=== PATIENT | female | born 1935 | race Caucasian/White ===

== ENCOUNTER 2017-07-13 12:30 | Outpatient (CLI) | payer MEDICARE, BC ==
[~2017-07-13 12:30] MED LIST: Sodium Chloride 0.9% 15 ML NEB ONE
--- OUTSIDE RECORDS SUMMARY | 2017-07-13 12:32 | XMS | Clinical Summary ---
:1935 Author Organization [facility] Address [address] [place] [address] Phone Care Team Providers Name Role Phone , Primary Care Provider Unavailable Allergies No Known Allergies Current Medications Prescription Sig. Disp. Refills Start Date End Date Status ondansetron (ZOFRAN) 4 Inject 2 mLs (4 mg 20 mL 0 10/07/2016 Active mg/2 mL injection total) intravenously every 8 (eight) hours as needed. metoprolol (LOPRESSOR) 50 mg by PEG Tube Active 50 MG tablet route every 6 (six) hours. acetaminophen 650 Take 650 mg by mouth Active mg/20.3 mL Soln every 6 (six) hours as needed. polyethylene glycol 17 g by PEG Tube Active (GLYCOLAX) 17 gram route 2 (two) times packet daily. potassium, sodium 1 packet by PEG Tube Active phosphates (PHOS-NAK) route 2 (two) times 280-160-250 mg PwPk daily. packet simethicone (MYLICON) 80 mg by PEG Tube Active 80 MG chewable tablet route every 6 (six) hours as needed for Flatulence. isosorbide dinitrate 20 mg by PEG Tube Active (ISORDIL) 20 MG tablet route 3 (three) times daily. losartan (COZAAR) 50 MG 50 mg by PEG Tube Active tablet route daily. furosemide 10 mg/mL Take 40 mg by mouth 2 Active Syrg (two) times daily . diphenoxylate-atropine Take by mouth 4 Active (LOMOTIL) 2.5-0.025 (four) times daily as mg/5 mL liquid needed. diphenhydrAMINE Take 25 mg by mouth Active (BENYLIN) 12.5 mg/5 mL every night as needed liquid for Allergies. diphenhydrAMINE Take 25 mg by mouth 4 Active (BENYLIN) 12.5 mg/5 mL (four) times daily as liquid needed for Allergies. cloNIDine HCl 0.1 mg by PEG Tube Active (CATAPRES) 0.1 MG route every 6 (six) tablet hours as needed BP>189/94 or HR >72 . LIP PROTECTIVE, Apply topically 4 Active BENZOPHENONE, TOP (four) times daily as needed. artificial Place 1 drop into Active tears,hypromellose, 0.4 both eyes 4 (four) % Drop times daily as needed. acetaZOLAMIDE (DIAMOX) 250 mg by PEG Tube Active 250 MG tablet route 2 (two) times daily. traMADol (ULTRAM) 50 mg 50 mg by PEG Tube Active tablet route every 6 (six) hours as needed for Pain. apixaban (ELIQUIS) 2.5 2.5 mg by PEG Tube 10/07/2016 Active mg Tab tablet route 2 (two) times daily. clopidogrel (PLAVIX) 75 Take 75 mg by mouth Active mg tablet daily. cefTRIAXone 1 gram SolR Inject intravenously. Active injection albuterol-ipratropium Inhale 2 puffs by Active (COMBIVENT) 18-103 mouth via inhaler mcg/actuation inhaler every 6 (six) hours as needed for Wheezing. polyvinyl alcohol 1 drop as needed. 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 Thrombocytopenia, acquired 09/27/2016 Acute pulmonary insufficiency following thoracic surgery ([facility]) 09/15/2016 Postoperative anemia due to acute blood loss 09/15/2016 Aortic dissection ([facility]) 09/14/2016 Social History Tobacco Use Types Packs/Day Years Used Date Never Smoker Cigarettes Tobacco Cessation:Ready to Quit: No; Counseling Given: No Alcohol Use Drinks/Week oz/Week Comments Yes 1 Glasses of wine 0.6 WINE Sex Assigned at Date Recorded Not on file Last Filed Vital Signs Vital Sign Reading Time Taken Blood Pressure 134/81 10/27/2016 2:43 PM GETTERER Pulse 99 10/27/2016 2:43 PM GETTERER Temperature 37.3 C (99.2 F) 10/27/2016 8:57 AM GETTERER Respiratory Rate 18 10/27/2016 2:43 PM GETTERER Oxygen Saturation 99% 10/27/2016 2:43 PM GETTERER Inhaled Oxygen Concentration - - Weight 76.7 kg (169 lb) 10/26/2016 8:10 AM GETTERER Height 170.2 cm (5' 7.01") 10/26/2016 8:10 AM GETTERER Body Mass Index 26.46 10/26/2016 8:10 AM GETTERER Plan of Treatment Not on file Implants Implanted Type Area Cellophane Wrapping Examiner Device Expiration Model / Serial Identifier Date / Lot Tiss Live Bioglue 10ml [id number] - [id number] Cement/F N/A: CRYOLIFE [id number] / Implanted:Qty: 1 on 09/14/2016 by Kian Padilla MD iller/Ad Chest / hesive [id number] Tachosil Lg Absorbable Patch [id number] - [id number] Cement/F N/A: BRIGGS: BIOSCI 02/13/2017 [id number] / Implanted:Qty: 1 on 09/14/2016 by Kian Padilla MD iller/Ad Heart / hesive [id number] Tachosil Absrb Ptch 4.8x4.8cm [id number] - [id number] Cement/F N/A: BRIGGS: BIOSCI 02/13/2017 [id number] / Implanted:Qty: 1 on 09/14/2016 by Kian Padlila MD iller/Ad Heart / hesive [id number] Matrix Floseal Hemo W/O Ndl 10 [id number] - [id number] Cement/F N/A: BRIGGS: BIOSCI 01/14/2018 [id number] / Implanted:Qty: 1 on 09/14/2016 by Willow Coronado MD iller/Ad Chest / hesive [id number] Graft Vasutek Woven 30cm [id number] - [id number] Graft/Pa N/A: TERUMO:TERUMO 03/16/2021 [id number] / Implanted:Qty: 1 on 09/14/2016 by Kian Padilla MD [facility] Heart MED [id number] / [id number] Grft Vasc Precrv 28mm [id number] - [id number] Graft/Pa N/A: VASCULAR 2019 [id number] / Implanted:Qty: 1 on 09/14/2016 by Kian Padilla MD [facility] Aorta TECHNOLOGY [id number] / [id number] Patch Vasc [place] 1.65mm 1x6in [id number] - [id number] Graft/Pa N/A: CR 2020 [id number] / Implanted:Qty: 2 on 09/14/2016 by Kian Padilla MD [facility] Heart BARD:PERIPHERAL / VASC [id number] Results Not on filefrom Last 3 Months
--- NOTE | 2017-07-13 14:14 | PRG ---
DATE OF SERVICE: 07/13/2017 HISTORY: Ms. Belinda Wilson is a very pleasant 82-year-old who presents to the Wound Center for evaluation of a wound of the left foot subsequent to transmetatarsal amputation in November of this year. The patient recently underwent a second surgery by Dr. Jensen of Podiatry. Again, the patient underwent resection of exposed bone within the wound bed of the left foot wound in addition to the a pplication of PriMatrix to the wound bed of the left foot wound. The patient underwent the last mary carmen gical procedure at [facility]. Negative pressure therapy was not resumed afte r surgery. The patient continues to receive physical therapy now with the weightbearing on the left lower extremity. The patient has been receiving dressing changes of Adaptic, Kerlix, and an Dre ba ndage. These dressing changes are being performed on a weekly basis here in the Wound Center, and a s needed by the patient's . Ms. Wilson has no complaints today. She denies any fever or ch ills. PHYSICAL EXAMINATION: VITAL SIGNS: Temperature 97.8, pulse 75, respirations 18, blood pressure 182/89. EXTREMITIES: A wound of the left foot is present which measures approximately 4.5 x 8.8 cm. The di mensions of the wound at the time of the patient's visit on 07/06/2017 were approximately 5.1 x 6.8 cm. The wound is granulating. No purulent drainage is associated with the wound. No erythema of t he skin surrounding the wound is present. No maceration of the skin of the periwound is noted. No significant edema of the left foot is present on exam today. ASSESSMENT AND PLAN: 1. Wound of left foot subsequent to transmetatarsal amputation. As stated above, the patient has u ndergone resection of exposed bone within the wound bed of the left foot wound and PriMatrix applica tion both on two separate occasions by Dr. Jensen of Podiatry. As stated above, negative pressure the rapy was not resumed after surgery. Dressing changes of Adaptic, Kerlix, and an Dre bandage will be continued on a weekly basis and also as needed. I will see Ms. Wilson again in 1 week. The patie nt will continue physical therapy now with weightbearing on the left lower extremity per Dr. Jensen. 2. Thoracic aortic dissection status post repair at [facility] in [place]. 3. Hypertension. 4. Osteoarthritis. 5. Peripheral vascular disease.
== END 2017-07-13 12:31 | disposition home or self-care (01) ==
LOC: WCC 12:30
PROVIDERS: ATTEND Family Medicine
DX: T81.89XD Other complications of procedures, not elsewhere classified, subsequent encounter (principal)
CPT/HCPCS: 97602; A4218

== ENCOUNTER 2017-07-20 13:07 | Outpatient (CLI) | payer MEDICARE, BC ==
--- OUTSIDE RECORDS SUMMARY | 2017-07-20 13:11 | XMS | Clinical Summary ---
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 Thrombocytopenia, acquired ([facility]) 09/27/2016 Acute pulmonary insufficiency following thoracic surgery ([facility]) 09/15/2016 Postoperative anemia due to acute blood loss 09/15/2016 Aortic dissection ([facility]) 09/14/2016 Social History Tobacco Use Types Packs/Day Years Used Date Never Smoker Cigarettes Tobacco Cessation:Ready to Quit: No; Counseling Given: No Alcohol Use Drinks/Week oz/Week Comments Yes 1 Glasses of wine 0.6 WINE Sex Assigned at Date Recorded Not on file Last Filed Vital Signs Vital Sign Reading Time Taken Blood Pressure 134/81 10/27/2016 2:43 PM HAND EDGER Pulse 99 10/27/2016 2:43 PM HAND EDGER Temperature 37.3 C (99.2 F) 10/27/2016 8:57 AM HAND EDGER Respiratory Rate 18 10/27/2016 2:43 PM HAND EDGER Oxygen Saturation 99% 10/27/2016 2:43 PM HAND EDGER Inhaled Oxygen Concentration - - Weight 76.7 kg (169 lb) 10/26/2016 8:10 AM HAND EDGER Height 170.2 cm (5' 7.01") 10/26/2016 8:10 AM HAND EDGER Body Mass Index 26.46 10/26/2016 8:10 AM HAND EDGER Plan of Treatment Not on file Implants Implanted Type Area Splitting Machine Operator Device Expiration Model / Serial Identifier Date / Lot Tiss Live Bioglue 10ml [id number] - [id number] Cement/F N/A: CRYOLIFE [id number] / Implanted:Qty: 1 on 09/14/2016 by Kian Padilla MD iller/Ad Chest / hesive [id number] Tachosil Lg Absorbable Patch [id number] - [id number] Cement/F N/A: BRIGGS: BIOSCI 02/13/2017 [id number] / Implanted:Qty: 1 on 09/14/2016 by Kian Padilla MD iller/Ad Heart / hesive [id number] Tachosil Absrb Ptch 4.8x4.8cm [id number] - [id number] Cement/F N/A: BRIGGS: BIOSCI 02/13/2017 [id number] / Implanted:Qty: 1 on 09/14/2016 by Kian Padilla MD iller/Ad Heart / hesive [id number] Matrix Floseal Hemo W/O Ndl 10 [id number] - [id number] Cement/F N/A: BRIGGS: BIOSCI 01/14/2018 [id number] / Implanted:Qty: 1 on 09/14/2016 by Willow Coronado MD iller/Ad Chest / hesive [id number] Graft Vasutek Woven 30cm [id number] - [id number] Graft/Pa N/A: TERUMO:TERUMO 03/16/2021 [id number] / Implanted:Qty: 1 on 09/14/2016 by Kian Padilla MD [facility] Heart MED [id number] / [id number] Grft Vasc Precrv 28mm [id number] - [id number] Graft/Pa N/A: VASCULAR 2019 [id number] / Implanted:Qty: 1 on 09/14/2016 by Kian Padilla MD [facility] Aorta TECHNOLOGY [id number] / [id number] Patch Vasc [place] 1.65mm 1x6in [id number] - [id number] Graft/Pa N/A: CR 2020 [id number] / Implanted:Qty: 2 on 09/14/2016 by Kian Padilla MD [facility] Heart BARD:PERIPHERAL / VASC [id number] Results Not on filefrom Last 3 Months
--- NOTE | 2017-07-20 14:54 | PRG ---
DATE OF SERVICE: 07/20/2017 HISTORY: Ms. Trevino is a very pleasant 82-year-old, who presents to the Wound Center for evaluation of a wound of the left foot subsequent to transmetatarsal amputation in November of this year. The patient recently underwent a second surgery by Dr. Amaro of Podiatry. Again, the patient underwent resection of exposed bone within the wound bed of the left foot wound in addition to the application of PriMatrix to the wound bed of the left foot wound. The patient underwent the last surgical proc edure at [facility]. Negative pressure therapy was not resumed after surgery. The patient continues to receive physical therapy now with weightbearing on the left lower extremi ty. The patient has been receiving dressing changes of Adaptic, Kerlix, and an Dre bandage. These dressing changes are being performed on a weekly basis here in the Wound Center and as needed by the patient's . The patient has no complaints today. She denies any fever or chills. PHYSICAL EXAMINATION: VITAL SIGNS: Temperature 97.8, pulse 73, respirations 20, blood pressure 140/66. EXTREMITIES: A wound of the left foot is present, which measures approximately 4.0 x 7.0 cm. The d imensions of the wound at the time of the patient's visit on 07/13/2017 were approximately 4.5 x 8.8 cm. The wound is granulating. No purulent drainage is associated with the wound. No erythema of the skin surrounding the wound is present. No maceration of the skin of the periwound is noted. No significant edema of the left foot is present on exam today. ASSESSMENT AND PLAN: 1. Wound of left foot subsequent to transmetatarsal amputation. As stated above, the patient has u ndergone resection of exposed bone within the wound bed of the left foot wound and PriMatrix applica tion both on two separate occasions by Dr. Amaro of Podiatry. As stated above, negative pressure the rapy was not resumed after surgery. Dressing changes of Adaptic, Kerlix, and an Dre bandage will be continued on a weekly basis and also as needed. I will see Ms. Wilson again in 1 week. The patie nt will continue physical therapy now with weightbearing on the left lower extremity as per Dr. Amaro . 2. Thoracic aortic dissection, status post repair at [facility] in [place]. 3. Hypertension. 4. Osteoarthritis. 5. Peripheral vascular disease.
[2017-07-20] MEDS ORDERED: Sodium Chloride 0.9% 15 ML NEB ONE (16:24)
== END 2017-07-20 13:08 | disposition home or self-care (01) ==
LOC: WCC 13:07
PROVIDERS: ATTEND Family Medicine
DX: T81.89XD Other complications of procedures, not elsewhere classified, subsequent encounter (principal); I71.01 Dissection of thoracic aorta; I10 Essential (primary) hypertension; M19.90 Unspecified osteoarthritis, unspecified site; I73.9 Peripheral vascular disease, unspecified
CPT/HCPCS: 97602; A4218

== ENCOUNTER 2017-07-27 12:56 | Outpatient (CLI) | payer MEDICARE, BC ==
--- NOTE | 2017-07-27 15:44 | PRG ---
DATE OF SERVICE: 07/27/2017 HISTORY: Ms. Belinda Wilson is a very pleasant 82-year-old who presents to the Wound Center for char luation of a wound of the left foot subsequent to transmetatarsal amputation in 11/2015. The patien t recently underwent a second surgery by Dr. Amaro of Podiatry. Again, the patient underwent resecti on of exposed bone within the wound bed of the left foot wound in addition to the application of Maryse Matrix to the wound bed of the left foot wound. The patient underwent the last surgical procedure a t [facility]. Negative pressure therapy was not resumed after surgery. The p atient continues to receive physical therapy now with weightbearing on the left lower extremity. Th e patient has been receiving dressing changes of Adaptic, Kerlix, and an Dre bandage. These dressin g changes are being performed on a weekly basis here in the Wound Center, and as needed by the patie nt's . Ms. Wilson has no complaints today. She denies any fever or chills. PHYSICAL EXAMINATION: VITAL SIGNS: Temperature 98.3, pulse 70, respirations 18, blood pressure 145/71. EXTREMITIES: A wound of the left foot is present which measures approximately 4.0 x 8.0 cm. The di mensions of the wound at the time of the patient's visit on 07/20/2017 were approximately 4.0 x 7.0 cm. The wound is granulating. No purulent drainage is associated with the wound. No erythema of t he skin surrounding the wound is present. No maceration of the skin of the periwound is noted. No significant edema of the left foot is present on exam today. ASSESSMENT AND PLAN: 1. Wound of left foot subsequent to transmetatarsal amputation. As stated above, the patient has u ndergone resection of exposed bone within the wound bed of the left foot wound and PriMatrix applica tion both on two separate occasions by Dr. Amaro of Podiatry. As stated above, negative pressure the rapy was not resumed after surgery. Dressing changes of Adaptic, Kerlix, and an Dre bandage will be continued on a weekly basis and also as needed. I will see Ms. Wilson again in one week. The pat ient will continue physical therapy now with weightbearing on the left lower extremity as per Dr. Re ed. 2. Thoracic aortic dissection status post repair at [facility] in [place]. 3. Hypertension. 4. Osteoarthritis. 5. Peripheral vascular disease.
[2017-07-27] MEDS ORDERED: Sodium Chloride 0.9% 15 ML NEB ONE (17:26)
== END 2017-07-27 12:57 | disposition home or self-care (01) ==
LOC: WCC 12:56
PROVIDERS: ATTEND Family Medicine
DX: T81.89XD Other complications of procedures, not elsewhere classified, subsequent encounter (principal); I10 Essential (primary) hypertension; M19.90 Unspecified osteoarthritis, unspecified site; I73.9 Peripheral vascular disease, unspecified; Z98.890 Other specified postprocedural states
CPT/HCPCS: 97602; A4218

== ENCOUNTER 2017-08-03 13:07 | Outpatient (CLI) | payer MEDICARE, BC ==
--- NOTE | 2017-08-03 15:00 | PRG ---
DATE OF SERVICE: 08/03/2017 HISTORY: Ms. Belinda Wilson is a very pleasant 82-year-old who presents to the Wound Center for evaluation of a wound of the left foot subsequent to transmetatarsal amputation in 11/2015. The pat nazia recently underwent a second surgery by Dr. Amaro of Podiatry. Again, the patient underwent rese ction of exposed bone within the wound bed of the left foot wound in addition to the application of PriMatrix to the wound bed of the left foot wound. The patient underwent the last surgical procedur e at [facility]. Negative pressure therapy was not resumed after surgery. e patient continues to receive physical therapy now with weightbearing on the left lower extremity. The patient has been receiving dressing changes of Adaptic, Kerlix, and an Dre bandage. These dres sing changes are being performed on a weekly basis here in the Wound Center, and as needed by the daphne bustillo's . The patient has no complaints today. She denies any fever or chills. PHYSICAL EXAMINATION: VITAL SIGNS: Temperature 97.7, pulse 69, respirations 18, and blood pressure 176/89. EXTREMITIES: A wound of the left foot is present which measures approximately 4.0 x 6.5 cm. The di mensions of the wound at the time of the patient's visit on 07/27/2017 were approximately 4.0 x 8.0 cm. The wound is granulating. No purulent drainage is associated with the wound. Nonviable tissue present within the wound margins was debrided with an excisional full-thickness debridement with use of a curette and scissors. No erythema of the skin surrounding the wound is present. No mace ration of the skin of the periwound is noted. No significant edema of the left foot is present on e xam today. ASSESSMENT AND PLAN: 1. Wound of left foot subsequent to transmetatarsal amputation. As stated above, the patient has u ndergone resection of exposed bone within the wound bed of the left foot wound and PriMatrix applica tion both on two separate occasions by Dr. Amaro of Podiatry. As stated above, negative pressure the rapy was not resumed after surgery. Dressing changes of Adaptic, ABDs, Kerlix, and an Dre bandage w ill be initiated today. These dressing changes are to be performed on a weekly basis and also as genoveva eded. I will see Ms. Wilson again in one week. The patient will continue physical therapy now wit h weightbearing on the left lower extremity as per Dr. Amaro. 2. Thoracic aortic dissection status post repair at [facility] in [place]. 3. Hypertension. 4. Osteoarthritis. 5. Peripheral vascular disease.
[2017-08-03] MEDS ORDERED: Lidocaine 2% Jelly 5 ML TUBE ONE (17:12)
[2017-08-03] MEDS ORDERED: Sodium Chloride 0.9% 15 ML NEB ONE (17:12)
== END 2017-08-03 13:08 | disposition home or self-care (01) ==
LOC: WCC 13:07
PROVIDERS: ATTEND Family Medicine
DX: S91.302D Unspecified open wound, left foot, subsequent encounter (principal)
CPT/HCPCS: 11042; 11045; A4218

== ENCOUNTER 2017-08-10 13:47 | Outpatient (CLI) | payer MEDICARE, BC ==
--- NOTE | 2017-08-10 15:17 | PRG ---
DATE OF SERVICE: 08/10/2017 SUBJECTIVE: Ms. Belinda Wilson is a very pleasant 82-year-old who presents to the Wound Center f or evaluation of a wound of the left foot subsequent to transmetatarsal amputation in 11/2015. The patient recently underwent a second surgery by Dr. Amaro of Podiatry. Again, the patient underwent r esection of exposed bone within the wound bed of the left foot wound in addition to the application of PriMatrix to the wound bed of the left foot wound. The patient underwent the last surgical proce dure at [facility]. Negative pressure therapy was not resumed after surgery. The patient continues to receive physical therapy now with weightbearing on the left lower extremit y. The patient has been receiving dressing changes of Adaptic, Kerlix, and an Dre bandage. These d ressing changes are being performed on a weekly basis here in the Wound Center and as needed by the patient's . Ms. Wilson has no complaints today. She denies any fever or chills. PHYSICAL EXAMINATION: VITAL SIGNS: Temperature 97.5, pulse 73, respirations 18, blood pressure 145/69. EXTREMITIES: A wound of the left foot is present, which measures approximately 3.0 x 6.0 cm. The d imensions of the wound at the time of the patient's visit on 08/03/2017 were approximately 4.0 x 6.5 cm. The wound is granulating. No purulent drainage is associated with the wound. Nonviable tissu e present within the wound margins was debrided with an excisional full-thickness debridement with t he use of a curette and scissors. No erythema of the skin surrounding the wound is present. No mac eration of the skin of the periwound is noted. No significant edema of the left foot is present on exam today. ASSESSMENT AND PLAN: 1. Wound of left foot subsequent to transmetatarsal amputation. As stated above, the patient has u ndergone resection of exposed bone within the wound bed of the left foot wound and PriMatrix applica tion both on [address] Amaro of Podiatry. As stated above, negative pressure thera py was not resumed after surgery. Dressing changes of Adaptic, Kerlix, and an Dre bandage will be c ontinued on a weekly basis and also as needed. I will see Ms. Wilson again in 1 week. The patient will continue physical therapy now with weightbearing on the left lower extremity as per Dr. Amaro. The patient has also been given a prescription for Tylenol #3, #30 one to two p.o. q.4-6 hours p.r. n. pain. 2. Thoracic aortic dissection status post repair at [facility] in [place]. 3. Hypertension. 4. Osteoarthritis. 5. Peripheral vascular disease.
[2017-08-10] MEDS ORDERED: Lidocaine 2% Jelly 5 ML TUBE ONE (17:29)
[2017-08-10] MEDS ORDERED: Sodium Chloride 0.9% 15 ML NEB ONE (17:29)
== END 2017-08-10 13:48 | disposition home or self-care (01) ==
LOC: WCC 13:47
PROVIDERS: ATTEND Family Medicine
DX: T81.89XD Other complications of procedures, not elsewhere classified, subsequent encounter (principal); S91.302D Unspecified open wound, left foot, subsequent encounter; I73.9 Peripheral vascular disease, unspecified; I10 Essential (primary) hypertension; M19.90 Unspecified osteoarthritis, unspecified site; I71.01 Dissection of thoracic aorta
CPT/HCPCS: 11042; A4218

== ENCOUNTER 2017-08-17 13:15 | Outpatient (CLI) | payer MEDICARE, BC ==
--- NOTE | 2017-08-17 15:14 | PRG ---
DATE OF SERVICE: 08/17/2017 HISTORY: Ms. Belinda Wilson is a very pleasant 82-year-old who presents to the Wound Center for evaluation of a wound of the left foot subsequent to transmetatarsal amputation in 11/2016. The pat nazia recently underwent a second surgery by Dr. Amaro of Podiatry. Again, the patient underwent rese ction of exposed bone within the wound bed of the left foot wound in addition to the application of PriMatrix to the wound bed of the left foot wound. The patient underwent the last surgical procedur e at [facility]. Negative pressure therapy was not resumed after surgery. Th e patient continues to receive physical therapy now with weightbearing on the left lower extremity. The patient has been receiving dressing changes of Adaptic, Kerlix, and an Dre bandage. These dres sing changes are being performed on a weekly basis here in the Wound Center, and as needed by the daphne bustillo's . Ms. Wilson has no complaints today. She denies any fever or chills. PHYSICAL EXAMINATION: VITAL SIGNS: Temperature 97.7, pulse 67, respirations 17, blood pressure 169/72. EXTREMITIES: A wound of the left foot is present which measures approximately 2.0 x 6.0 cm. The di mensions of the wound at the time of the patient's visit on 08/10/2017 were approximately 3.0 x 6.0 cm. The wound is granulating. Nonviable tissue present within the wound margins was debrided with an excisional full-thickness debridement with the use of a curette. No purulent drainage is associa sujit with the wound. No erythema of the skin surrounding the wound is present. No maceration of the skin of the periwound is noted. No significant edema of the left foot is present on exam today. D esiccated tissue at the periphery of the wound was excised with the use of scissors. ASSESSMENT AND PLAN: 1. Wound of left foot subsequent to transmetatarsal amputation. As stated above, the patient has u ndergone resection of exposed bone within the wound bed of the left foot wound and PriMatrix applica tion, both on [address] Amaro of Podiatry. As stated above, negative pressure ther apy was not resumed after surgery. Dressing changes of Adaptic, Kerlix, and an Dre bandage will be continued on a weekly basis and also as needed. I will see Ms. Wilson again in 1 week. The patien t will continue physical therapy now with weightbearing on the left lower extremity as per Dr. Amaro. 2. Thoracic aortic dissection, status post repair at [facility] in [place]. 3. Hypertension. 4. Osteoarthritis. 5. Peripheral vascular disease.
--- OUTSIDE RECORDS SUMMARY | 2017-08-17 15:17 | XMS | Clinical Summary ---
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 Thrombocytopenia, acquired ([facility]) 09/27/2016 Acute pulmonary insufficiency following thoracic surgery ([facility]) 09/15/2016 Postoperative anemia due to acute blood loss 09/15/2016 Aortic dissection ([facility]) 09/14/2016 Social History Tobacco Use Types Packs/Day Years Used Date Never Smoker Cigarettes Tobacco Cessation:Ready to Quit: No; Counseling Given: No Alcohol Use Drinks/Week oz/Week Comments Yes 1 Glasses of wine 0.6 WINE Sex Assigned at Date Recorded Not on file Last Filed Vital Signs Vital Sign Reading Time Taken Blood Pressure 134/81 10/27/2016 2:43 PM FREELANCE OPERATOR Pulse 99 10/27/2016 2:43 PM FREELANCE OPERATOR Temperature 37.3 C (99.2 F) 10/27/2016 8:57 AM FREELANCE OPERATOR Respiratory Rate 18 10/27/2016 2:43 PM FREELANCE OPERATOR Oxygen Saturation 99% 10/27/2016 2:43 PM FREELANCE OPERATOR Inhaled Oxygen Concentration - - Weight 76.7 kg (169 lb) 10/26/2016 8:10 AM FREELANCE OPERATOR Height 170.2 cm (5' 7.01") 10/26/2016 8:10 AM FREELANCE OPERATOR Body Mass Index 26.46 10/26/2016 8:10 AM FREELANCE OPERATOR Plan of Treatment Not on file Implants Implanted Type Area Ammunition Components Inspector Device Expiration Model / Serial Identifier Date / Lot Tiss Live Bioglue 10ml [id number] - [id number] Cement/F N/A: CRYOLIFE [id number] / Implanted:Qty: 1 on 09/14/2016 by Kian Padilla MD iller/Ad Chest / hesive [id number] Tachosil Lg Absorbable Patch [id number] - [id number] Cement/F N/A: BRIGGS: BIOSCI 02/13/2017 [id number] / Implanted:Qty: 1 on 09/14/2016 by Kian Padilla MD iller/Ad Heart / hesive [id number] Tachosil Absrb Ptch 4.8x4.8cm [id number] - [id number] Cement/F N/A: BRIGGS: BIOSCI 02/13/2017 [id number] / Implanted:Qty: 1 on 09/14/2016 by Kian Padilla MD iller/Ad Heart / hesive [id number] Matrix Floseal Hemo W/O Ndl 10 [id number] - [id number] Cement/F N/A: BRIGGS: BIOSCI 01/14/2018 [id number] / Implanted:Qty: 1 on 09/14/2016 by Willow Coronado MD iller/Ad Chest / hesive [id number] Graft Vasutek Woven 30cm [id number] - [id number] Graft/Pa N/A: TERUMO:TERUMO 03/16/2021 [id number] / Implanted:Qty: 1 on 09/14/2016 by Kian Padilla MD [facility] MED [id number] / [id number] Grft Vasc Precrv 28mm [id number] - [id number] Graft/Pa N/A: VASCULAR 2019 [id number] / Implanted:Qty: 1 on 09/14/2016 by Kian Padilla MD [facility] Aorta TECHNOLOGY [id number] / [id number] Patch Vasc [place] 1.65mm 1x6in [id number] - [id number] Graft/Pa N/A: CR 2020 [id number] / Implanted:Qty: 2 on 09/14/2016 by Kian Padilla MD [facility] BARD:PERIPHERAL / VASC [id number] Results Not on filefrom Last 3 Months
[2017-08-17] MEDS ORDERED: Sodium Chloride 0.9% 15 ML NEB ONE (17:01)
[2017-08-17] MEDS ORDERED: Lidocaine 2% Jelly 5 ML TUBE ONE (17:01)
== END 2017-08-17 13:16 | disposition home or self-care (01) ==
LOC: WCC 13:15
PROVIDERS: ATTEND Family Medicine
DX: T81.89XD Other complications of procedures, not elsewhere classified, subsequent encounter (principal); I10 Essential (primary) hypertension; M19.90 Unspecified osteoarthritis, unspecified site; I73.9 Peripheral vascular disease, unspecified; I71.01 Dissection of thoracic aorta
CPT/HCPCS: 11042; A4218

== ENCOUNTER 2017-08-31 13:15 | Outpatient (CLI) | payer MEDICARE, BC ==
[~2017-08-31 13:15] MED LIST changes: +Lidocaine 2% Jelly 5 ML TUBE ONE
--- NOTE | 2017-08-31 14:46 | PRG ---
DATE OF SERVICE: 08/31/2017 HISTORY: Ms. Belinda Wilson is a very pleasant 82-year-old, who presents to the Wound Center for evaluation of a wound of the left foot subsequent to transmetatarsal amputation in 11/2016. The debbie ent recently underwent a second surgery by Dr. Amaro of Podiatry. Again, the patient underwent resect ion of exposed bone within the wound bed of the left foot wound in addition to the application of Maryse Matrix to the wound bed of the left foot wound. The patient underwent the last surgical procedure at [facility]. Negative pressure therapy was resumed after surgery. The patient continues to receive physical therapy now with weightbearing on the left lower extremity. The patie nt has been receiving dressing changes of Adaptic, an ABD, Kerlix, and an Dre bandage. These dressin g changes are being performed on a weekly basis here in the Wound Center and as needed by the patient 's . The patient has no complaints today. She denies any fever or chills. PHYSICAL EXAMINATION: VITAL SIGNS: Temperature 97.7, pulse 66, respirations 18, blood pressure 156/76. EXTREMITIES: A wound of the left foot is present, which measures approximately 2.0 x 3.8 cm. The di mensions of the wound at the time of the patient's visit on 08/24/2017 were approximately 2.5 x 4.0 c m. The wound is granulating. Nonviable tissue present within the wound margins was debrided with an excisional full-thickness debridement with the use of a curet. Desiccated tissue at the periphery o f the wound was excised with the use of scissors. No purulent drainage is associated with the wound. No erythema of the skin surrounding the wound is present. No maceration of the skin of the periwou nd is noted. No significant edema of the left foot is present on today's exam. ASSESSMENT AND PLAN: 1. Wound of left foot subsequent to transmetatarsal amputation. As stated above, the patient has un dergone resection of exposed bone within the wound bed of the left foot wound and PriMatrix applicati on, both on [address] Amaro of Podiatry. As stated above, negative pressure therapy was not resumed after surgery. Dressing changes of Adaptic, an ABD, Kerlix, and an Dre bandage will be continued on a weekly basis and also as needed. I will see Ms. Wilson again in 2 weeks. The daphne bustillo will continue physical therapy now with weightbearing on the left lower extremity as per Dr. Amy kim. 2. Thoracic aortic dissection, status post repair at [facility] in [place]. 3. Hypertension. 4. Osteoarthritis. 5. Peripheral vascular disease.
== END 2017-08-31 13:16 | disposition home or self-care (01) ==
LOC: WCC 13:15
PROVIDERS: ATTEND Family Medicine
DX: T81.89XD Other complications of procedures, not elsewhere classified, subsequent encounter (principal); I10 Essential (primary) hypertension; M19.90 Unspecified osteoarthritis, unspecified site; I73.9 Peripheral vascular disease, unspecified; I71.01 Dissection of thoracic aorta
CPT/HCPCS: 11042; A4218

== ENCOUNTER 2017-09-14 13:26 | Outpatient (CLI) | payer MEDICARE, BC ==
--- NOTE | 2017-09-14 15:03 | PRG ---
DATE OF SERVICE: 09/14/2017 HISTORY: Ms. Belinda Wilson is a very pleasant 82-year-old, who presents to the Wound Center for char luation of a wound of the left foot subsequent to transmetatarsal amputation in 11/2016. The patient recently underwent a second surgery by Dr. Amaro of Podiatry. Again, the patient underwent resection of exposed bone within the wound bed of the left foot wound in addition to the application of PriMat john to the wound bed of the left foot wound. The patient underwent the last surgical procedure at [facility]. Negative pressure therapy was resumed after surgery. The patient co ntinues to receive physical therapy, now with weightbearing on the left lower extremity. The patient has been receiving dressing changes of Adaptic, ABD, Kerlix, and an Dre bandage. These dressing migue nges are being performed on a weekly basis here in the Wound Center and as needed by the patient's hu sband. Ms. Wilson has no complaints today. She denies any fever or chills. The patient has been s een by her supervisor area for fitting with shoes. PHYSICAL EXAMINATION: VITAL SIGNS: Temperature 97.6, pulse 71, respirations 18, and blood pressure 146/67. EXTREMITIES: A wound of the left foot is still present, which has now divided into 3 smaller wounds. The dimensions of the largest wound are approximately 1.0 x 2.0 cm. Each wound is granulating. No nviable tissue present within the margins of each wound was debrided with an excisional full-thicknes s debridement with the use of a curet. Desiccated tissue at the periphery of each wound was excised with the use of scissors. No purulent drainage is associated with any of the wounds. No erythema of the skin surrounding any of the wounds is present. No maceration of the skin of the periwound of an y of the wounds is noted. No significant edema of the left foot is present on exam today. ASSESSMENT AND PLAN: 1. Wound of left foot subsequent to transmetatarsal amputation. As stated above, the patient has un dergone resection of exposed bone within the wound bed of the left foot wound and PriMatrix applicati on both on two separate occasions by Dr. Amaro of Podiatry. As stated above, negative pressure therap y was not resumed after surgery. Dressing changes of Adaptic, ABD, Kerlix, and an Dre bandage will b e continued on a weekly basis and also as needed. I will see Ms. Wilson again in two weeks. The pa keny will continue physical therapy now with weightbearing on the left lower extremity as per Dr. Amy kim. Since the patient's last visit, Ms. Wilson has been fitted for shoes by her supervisor area. 2. Thoracic aortic dissection, status post repair at [facility] in [place]. 3. Hypertension. 4. Osteoarthritis. 5. Peripheral vascular disease.
[2017-09-14] MEDS ORDERED: Lidocaine 2% Jelly 5 ML TUBE ONE (17:41)
== END 2017-09-14 13:27 | disposition home or self-care (01) ==
LOC: WCC 13:26
PROVIDERS: ATTEND Family Medicine
DX: T81.89XD Other complications of procedures, not elsewhere classified, subsequent encounter (principal); I10 Essential (primary) hypertension; M19.90 Unspecified osteoarthritis, unspecified site; I73.9 Peripheral vascular disease, unspecified; Z98.890 Other specified postprocedural states; Z89.422 Acquired absence of other left toe(s)
CPT/HCPCS: 11042

== ENCOUNTER 2017-09-28 13:09 | Outpatient (CLI) | payer MEDICARE, BC ==
--- NOTE | 2017-09-28 15:37 | PRG ---
DATE OF SERVICE: 09/28/2017 HISTORY: Ms. Belinda Wilson is a very pleasant 82-year-old who presents to the Wound Center for ev aluation of a wound of the left foot subsequent to transmetatarsal amputation in 11/2016. The patien t recently underwent a second surgery by Dr. Amaro of Podiatry. Again, the patient underwent resectio n of exposed bone within the wound bed of the left foot wound in addition to the application of PriMa trix to the wound bed of the left foot wound. The patient underwent the last surgical procedure in [facility]. Negative pressure therapy was not resumed after surgery. The patie nt continues to receive physical therapy now with weightbearing on the left lower extremity. The pat ient has been receiving dressing changes of Adaptic, ABD, Kerlix, and an Dre bandage. These dressing changes are being performed on a weekly basis here in the Wound Center and as needed by the patient' s . Ms. Wilson has no complaints today. She denies any fever or chills. The patient has be en seen by her lathe operator contact lens for fitting with shoes and her shoes are now available for use. PHYSICAL EXAMINATION: VITAL SIGNS: Temperature 97.6, pulse 65, respirations 18, blood pressure 132/63. EXTREMITIES: The wound of the left foot is still present which has now divided into 3 smaller wounds . Each wound is granulating. Nonviable tissue present within the margins of each wound was debrided with an excisional full-thickness debridement with the use of a curet. Desiccated tissue at the per iphery of each wound was excised with the use of scissors. No purulent drainage is associated with a ny of the wounds. No erythema of the skin surrounding any of the wounds is present. No maceration o f the skin of the periwound of any of the wounds is noted. No significant edema of the left foot is present on exam today. ASSESSMENT AND PLAN: 1. Wound of left foot subsequent to transmetatarsal amputation. As stated above, the patient has un dergone resection of exposed bone within the wound bed of the left foot wound and PriMatrix applicati on, both on two separate occasions by Dr. Amaro of Podiatry. As stated above, negative pressure thera py was not resumed after surgery. Dressing changes of Adaptic, an ABD, Kerlix, and an Dre bandage wi ll be continued on a weekly basis and also as needed. I will see Ms. Wilson again in one week. The patient will continue physical therapy now with weightbearing on the left lower extremity as per Dr. Amaro. The patient has received issues for which she was fitted by her lathe operator contact lens. 2. Thoracic aortic dissection, status post repair at [facility] in [place]. 3. Hypertension. 4. Osteoarthritis. 5. Peripheral vascular disease.
== END 2017-09-28 13:10 | disposition home or self-care (01) ==
LOC: WCC 13:09
PROVIDERS: ATTEND Family Medicine
DX: T81.89XD Other complications of procedures, not elsewhere classified, subsequent encounter (principal); M19.90 Unspecified osteoarthritis, unspecified site; I73.9 Peripheral vascular disease, unspecified; I71.01 Dissection of thoracic aorta; I10 Essential (primary) hypertension
CPT/HCPCS: 11042; A4218

== ENCOUNTER 2017-10-05 13:04 | Outpatient (CLI) | payer MEDICARE, BC ==
--- NOTE | 2017-10-05 15:10 | PRG ---
DATE OF SERVICE: 10/05/2017 HISTORY: Ms. Belinda Wilson is a very pleasant 82-year-old, who presents to the Wound Center for e valuation of a wound of the left foot subsequent to transmetatarsal amputation in 11/2016. The patie nt recently underwent a second surgery by Dr. Amaro of Podiatry. Again, the patient underwent resecti on of exposed bone within the wound bed of the left foot wound in addition to the application of PriM atrix to the wound bed of the left foot wound. The patient underwent the last surgical procedure in [facility]. Negative pressure therapy was not resumed after surgery. The debbie ent continues to receive physical therapy now with weightbearing on the left lower extremity. The pa tient has been receiving dressing changes of Adaptic, ABD, Kerlix, and an Dre bandage. These dressin g changes are being performed on a weekly basis here in the Wound Center and as needed by the patient 's . Ms. Wilson has no complaints today. She denies any fever or chills. The patient state d at the time of her last visit that she has shoes fitted for her by her marketing team lead and are now avail able for use. PHYSICAL EXAMINATION: VITAL SIGNS: Temperature 97.3, pulse 62, respirations 18, blood pressure 171/79. EXTREMITIES: The wound at the left foot is still present and has divided into 3 smaller wounds. Eac h wound is granulating. Nonviable tissue present within the margins of each wound was debrided with an excisional full-thickness debridement with the use of a curette. Desiccated tissue at the periphe ry of each wound was excised with the use of scissors. No purulent drainage is associated with any o f the wounds. No erythema of the skin surrounding any of the wounds is present. No maceration of th e skin of the periwound of any of the wounds is noted. No significant edema of the left foot is pres ent on exam today. ASSESSMENT AND PLAN: 1. Wound of left foot subsequent to transmetatarsal amputation. As stated above, the patient has un dergone resection of exposed bone within the wound bed of the left foot wound and PriMatrix applicati on both on two separate occasions by Dr. Amaro of Podiatry. As stated above, negative pressure therap y was not resumed after surgery. Dressing changes of Adaptic, ABD, Kerlix, and an Dre bandage will b e continued on a daily basis and also as needed. I will see Ms. Wilson again in 3 weeks. The patie nt will continue physical therapy now with weightbearing on the left lower extremity as per Dr. Amaro. 2. Thoracic aortic dissection status post repair at [facility] in [place]. 3. Hypertension. 4. Osteoarthritis. 5. Peripheral vascular disease.
[2017-10-05] MEDS ORDERED: Sodium Chloride 0.9% 15 ML NEB ONE (21:22)
[2017-10-05] MEDS ORDERED: Lidocaine 2% Jelly 5 ML TUBE ONE (21:22)
== END 2017-10-05 13:05 | disposition home or self-care (01) ==
LOC: WCC 13:04
PROVIDERS: ATTEND Family Medicine
DX: T81.89XD Other complications of procedures, not elsewhere classified, subsequent encounter (principal); I71.01 Dissection of thoracic aorta; I10 Essential (primary) hypertension; M19.90 Unspecified osteoarthritis, unspecified site; I73.9 Peripheral vascular disease, unspecified
CPT/HCPCS: A4218

== ENCOUNTER 2017-10-26 13:02 | Outpatient (CLI) | payer MEDICARE, BC ==
--- NOTE | 2017-10-26 15:47 | PRG ---
DATE OF SERVICE: 10/26/2017 HISTORY: Ms. Belinda Wilson is a very pleasant 82-year-old, who presents to the Wound Center for evaluation of a wound of the left foot subsequent to transmetatarsal amputation in 11/2016. The debbie ent recently underwent a second surgery by Dr. Amaro of Podiatry. Again, the patient underwent resect ion of exposed bone within the wound bed of the left foot wound in addition to the application of Maryse Matrix to the wound bed of the left foot wound. The patient underwent the last surgical procedure in [facility]. Negative pressure therapy was not resumed after surgery. The pat ient continues to receive physical therapy now with weightbearing on the left lower extremity. The p atient has been receiving dressing changes of Adaptic, ABD, Kerlix, and an Dre bandage. These dressi ng changes are being performed on a weekly basis here in the Wound Center, and as needed by the abdirahman nt's . The patient has no complaints today. She denies any fever or chills. The patient pre viously stated that she has shoes fitted for her by her technical spec and are now available for use. PHYSICAL EXAMINATION: VITAL SIGNS: Temperature 97.8, pulse 65, respirations 18, and blood pressure 150/77. EXTREMITIES: The wound of the left foot has divided into 3 smaller wounds. Only 2 of these wounds a re open. Both wounds are granulating. Nonviable tissue present within the margins of each wound was debrided with an excisional full-thickness debridement with the use of a curet. Desiccated tissue a t the periphery of each wound was excised with the use of scissors. No purulent drainage is associat ed with either wound. No erythema of the skin surrounding either wound is present. No maceration of the skin of the periwound of either wound is noted. No significant edema of the left foot is presen t on exam today. ASSESSMENT AND PLAN: 1. Wound of left foot subsequent to transmetatarsal amputation. As stated above, the patient has un dergone resection of exposed bone within the wound bed of the left foot wound and PriMatrix applicati on both on two separate occasions by Dr. Amaro of Podiatry. As stated above, negative pressure therap y was not resumed after surgery. Dressing changes of Xeroform gauze, ABDs, Kerlix, and an Dre bandag e are to be performed on a daily basis after cleansing and irrigation. I will see Ms. Wilson again in two weeks. The patient will continue physical therapy now with weightbearing on the left lower ex tremity as per Dr. Amaro. The patient will begin utilizing the shoes fitted for her by her technical spec. She will also begin ambulating in physical therapy. 2. Thoracic aortic dissection status post repair at [facility] in [place]. 3. Hypertension. 4. Osteoarthritis. 5. Peripheral vascular disease.
== END 2017-10-26 13:03 | disposition home or self-care (01) ==
LOC: WCC 13:02
PROVIDERS: ATTEND Family Medicine
DX: T81.89XD Other complications of procedures, not elsewhere classified, subsequent encounter (principal); I10 Essential (primary) hypertension; M19.90 Unspecified osteoarthritis, unspecified site; I73.9 Peripheral vascular disease, unspecified; Z86.79 Personal history of other diseases of the circulatory system
CPT/HCPCS: 11042

== ENCOUNTER 2017-11-09 13:27 | Outpatient (CLI) | payer MEDICARE, BC ==
--- NOTE | 2017-11-09 15:13 | PRG ---
DATE OF SERVICE: 11/09/2017 HISTORY: Ms. Belinda Wilson is a very pleasant 82-year-old, who presents to the Wound Center for evaluation of a wound of the left foot subsequent to transmetatarsal amputation in 11/2016. The patient recently underwent a second surgery by Dr. Amaro of Podiatry. Again, the patient underwent resection of exposed bone within the wound bed of the left foot wound in addition to the application of PriMatrix to the wound bed of the left foot wound. The patient underwent the last surgical procedure in [facility]. Negative pressure therapy was not resumed after surgery. The patient continues to receive physical therapy now with weightbearing on the left lower extremity. Since the patient's last visit, she has been receiving dressing changes of Xeroform gauze, ABDs, Kerlix, and an Dre bandage. These dressing changes are being performed on a weekly basis here in the Wound Center and on a daily basis by the patient' . The patient has no complaints today. She denies any fever or chills. The patient is utilizing the shoes fitted for her by her sports nutritionist. PHYSICAL EXAMINATION: VITAL SIGNS: Temperature 97.9, pulse 63, respirations 18, and blood pressure 154/110. EXTREMITIES: The wound of the left foot has divided into 3 wounds. The largest wound measures approximately 0.9 x 1.7 cm. The dimensions of this wound at the time of the patient's last visit were approximately 2.0 x 0.9 cm. Each wound is granulating. Nonviable tissue present within the margins of each wound was debrided with an excisional full-thickness debridement with the use of a curet. Desiccated tissue at the periphery of each wound was excised with the use of scissors. No purulent drainage is associated with any of the wounds. No erythema of the skin surrounding any of the wounds is present. No maceration of the skin of the periwound of any of the wounds is noted. No significant edema of the left foot is present on exam today. ASSESSMENT AND PLAN: 1. Wound of left foot subsequent to transmetatarsal amputation. As stated above, the patient has undergone resection of exposed bone within the wound bed of the left foot wound and PriMatrix application both on two separate occasions by Dr. Amaro of Podiatry. Also as stated above, negative pressure therapy was not resumed after surgery. Dressing changes of Xeroform gauze, ABDs, Kerlix, and an Dre bandage will be continued on a daily basis after cleansing and irrigation. I will see Ms. Wilson again in 3 weeks. The patient will continue physical therapy now with weightbearing on the left lower extremity as per Dr. Amaro. The patient has been told that she may continue to use the shoes fitted for her by her sports nutritionist. The patient has been given a prescription to continue physical therapy at [facility]. 2. Thoracic aortic dissection status post repair at [facility] in [place]. 3. Hypertension. 4. Osteoarthritis. 5. Peripheral vascular disease. MTDD
[2017-11-11] MEDS ORDERED: Sodium Chloride 0.9% 15 ML NEB ONE (15:59)
[2017-11-11] MEDS ORDERED: Lidocaine 2% Jelly 5 ML TUBE ONE (15:59)
== END 2017-11-09 13:28 | disposition home or self-care (01) ==
LOC: WCC 13:27
PROVIDERS: ATTEND Family Medicine
DX: T87.89 Other complications of amputation stump (principal); I10 Essential (primary) hypertension; M19.90 Unspecified osteoarthritis, unspecified site; I73.9 Peripheral vascular disease, unspecified; Z98.890 Other specified postprocedural states; Z89.422 Acquired absence of other left toe(s)
CPT/HCPCS: 11042

== ENCOUNTER 2017-11-30 13:38 | Outpatient (CLI) | payer MEDICARE, BC ==
--- NOTE | 2017-11-30 17:21 | PRG ---
DATE OF SERVICE: 11/30/2017 SUBJECTIVE: Ms. Belinda Wilson is a very pleasant 82-year-old accompanied by her and a ca regiver who presents to the Wound Center for evaluation of a wound of the left foot subsequent to tra nsmetatarsal amputation in 11/2016. Most recently, the patient underwent a second surgery by Dr. Lashon aguirre of Podiatry. Again, the patient underwent resection of exposed bone within the wound bed of the le ft foot wound in addition to the application of PriMatrix to the wound bed of the left foot wound. T he patient underwent the last surgical procedure in [facility]. Negative press ure therapy was not resumed after surgery. The patient continues to receive physical therapy now wit h weightbearing on the left lower extremity. Since the patient's last visit, Ms. Wilson has been re ceiving dressing changes of Xeroform gauze, ABDs, Kerlix and an Dre bandage. These dressing changes are being performed on a weekly basis here in the Wound Center and on a daily basis by the patient's . Ms. Wilson has no complaints today. She denies any fever or chills. OBJECTIVE: VITAL SIGNS: Temperature 97.4, pulse 84, respirations 17 and blood pressure 159/70. EXTREMITIES: Two wounds of the left foot are present. The largest wound measures approximately 1.0 x 1.5 cm. The smaller wound measures approximately 0.8 x 1.0 cm. Each wound is granulating. Nonvia ble tissue present within the margins of each wound was debrided with an excisional full-thickness de bridement with the use of a curette. Desiccated tissue at the periphery of each wound was excised wi th the use of scissors. No purulent drainage is associated with either wound. No erythema of the sk in surrounding either wound is present. No maceration of the skin of the periwound of either wound i s noted. A dorsalis pedis pulse is palpable on the left. No significant edema of the left foot is p resent on exam today. ASSESSMENT AND PLAN: 1. Wound of left foot subsequent to transmetatarsal amputation. As stated above, only 2 small wound s remain. As stated above, the patient has undergone resection of exposed bone within the wound bed of the left foot wound and PriMatrix application both on two separate occasions by Dr. Amaro of Podiat ry. Also as stated above, negative pressure therapy was not resumed after surgery. Dressing changes of Xeroform gauze, ABDs, Kerlix, and an Dre bandage will be continued on a daily basis after cleansi ng and irrigation. I will see Ms. Wilson again in 3 weeks. The patient will continue geophysical drafter apy now with weightbearing on the left lower extremity as per Dr. Amaro. The patient was previously g iven a prescription to [facility]. 2. Thoracic aortic dissection status post repair at [facility] in [place]. 3. Hypertension. 4. Osteoarthritis. 5. Peripheral vascular disease.
== END 2017-11-30 13:39 | disposition home or self-care (01) ==
LOC: WCC 13:38
PROVIDERS: ATTEND Family Medicine
DX: T81.89XD Other complications of procedures, not elsewhere classified, subsequent encounter (principal); L97.529 Non-pressure chronic ulcer of other part of left foot with unspecified severity; I10 Essential (primary) hypertension; M19.90 Unspecified osteoarthritis, unspecified site; I73.9 Peripheral vascular disease, unspecified; Z98.890 Other specified postprocedural states

== ENCOUNTER 2017-12-21 13:47 | Outpatient (CLI) | payer MEDICARE, BC ==
--- NOTE | 2017-12-21 17:26 | PRG ---
DATE OF SERVICE: 12/21/2017 HISTORY: Ms. Belinda Wilson is a very pleasant 82-year-old accompanied by her and a careg iver who presents to the [facility] for evaluation of a wound of the left foot subsequent to transm etatarsal amputation in 11/2016. Most recently, the patient underwent a second surgery by Dr. Prem garcia Podiatry. Again, the patient underwent resection of exposed bone within the wound bed of the left foot wound in addition to the application of PriMatrix to the wound bed of the left foot wound. The patient underwent the last surgical procedure in [facility]. Negative pressure therapy was not resumed after surgery. The patient continues to receive physical therapy now with w eightbearing on the left lower extremity. Since the patient's last visit, Ms. Wilson has been recei ving dressing changes of Xeroform gauze, ABDs, Kerlix, and an Dre bandage. These dressing changes ar e being performed on a daily basis after cleansing and irrigation with the assistance of the patient' s and caregiver. The patient has no complaints today. She denies any fever or chills. PHYSICAL EXAMINATION: VITAL SIGNS: Temperature 97.4, pulse 62, respirations 17, blood pressure 147/69. EXTREMITIES: Four small wounds of the left foot are present, the largest wound measures approximatel y 1.0 x 0.5 cm. Each wound is granulating. Nonviable tissue present within the margins of each woun d was debrided with an excisional full-thickness debridement with the use of a curette. Desiccated t issue at the periphery of each wound was excised with the use of scissors. No purulent drainage is a ssociated with any of the wounds. No erythema of the skin surrounding any of the wounds is present. No maceration of the skin of the periwound of any of the wounds is noted. No significant edema of t he left foot is present on exam today. ASSESSMENT AND PLAN: 1. Wound of left foot subsequent to transmetatarsal amputation. As stated above, only four small wo unds remain, the largest measuring 1.0 x 0.5 cm. As stated above, the patient has undergone resectio n of exposed bone within the wound bed of the left foot wound and PriMatrix application both on two s eparate occasions by Dr. Amaro of Podiatry. Also as stated above, negative pressure therapy was not r esumed after surgery. Dressing changes of Xeroform gauze, ABDs, Kerlix, and an Dre bandage will be c ontinued on a daily basis after cleansing and irrigation. I will see Ms. Wilson again in 3 weeks. The patient will continue physical therapy now with weightbearing on the left lower extremity as per Dr. Amaro. The patient was previously given a prescription to continue physical therapy. 2. Thoracic aortic dissection status post repair at [facility] in [place]. 3. Hypertension. 4. Osteoarthritis. 5. Peripheral vascular disease.
== END 2017-12-21 13:48 | disposition home or self-care (01) ==
LOC: WCC 13:47
PROVIDERS: ATTEND Family Medicine
DX: T81.89XD Other complications of procedures, not elsewhere classified, subsequent encounter (principal); I10 Essential (primary) hypertension; M19.90 Unspecified osteoarthritis, unspecified site; I73.9 Peripheral vascular disease, unspecified; Z98.890 Other specified postprocedural states
CPT/HCPCS: 11042; A4218

== ENCOUNTER 2018-01-11 13:20 | Outpatient (CLI) | payer MEDICARE, BC ==
--- NOTE | 2018-01-11 15:04 | PRG ---
DATE OF SERVICE: 01/11/2018 HISTORY: Ms. Belinda Wilson is a very pleasant 82-year-old accompanied by her and a caregive r who presents to the Wound Center for evaluation of a wound of the left foot subsequent to transmeta tarsal amputation in 11/2016. Most recently, the patient underwent a second surgery by Dr. Gipson of odiatry. Again, the patient underwent resection of exposed bone within the wound bed of the left sunshine t wound in addition to the application of PriMatrix to the wound bed of the left foot wound. The pat ient underwent the last surgical procedure in [facility]. Negative pressure th erapy was not resumed after surgery. The patient continues to receive physical therapy now with weig htbearing on the left lower extremity. Since the patient's last visit, Ms. Wilson has been receivin g dressing changes of Xeroform gauze, ABDs and Kerlix. These dressing changes are being performed on a daily basis after cleansing and irrigation with the assistance of the patient's and a home health care case manager. The patient has no complaints today. She denies any fever or chills. PHYSICAL EXAMINATION: VITAL SIGNS: Temperature 97.6, pulse 59, respirations 18, blood pressure 141/67. EXTREMITIES: Two small wounds of the left foot are present, the largest wound measuring approximatel y 0.8 x 1.2 cm. Both wounds are granulating. Nonviable tissue present within the margins of each wo und was debrided with an excisional full-thickness debridement with the use of a curette. Desiccated tissue at the periphery of each wound was excised with the use of scissors. A small amount of purul ent drainage is associated with a pinhole sized opening on the plantar surface of the left foot. Thi s drainage was sent for aerobic and anaerobic cultures. The opening was enlarged with the use of sci ssors. No erythema of the skin surrounding either wound is present. No maceration of the skin of th e periwound of either wound is noted. No significant edema of the left foot is present on exam today . ASSESSMENT AND PLAN: 1. Wound of left foot subsequent to transmetatarsal amputation. As stated above, only 2 small wound s remain and the largest measuring 0.8 x 1.2 cm. As stated above, the patient has undergone resectio n of exposed bone within the wound bed of the left foot wound and PriMatrix application both on two s eparate occasions by Dr. Gipson of Podiatry. Also as stated above, negative pressure therapy was not r esumed after surgery. Dressing changes of Xeroform gauze, ABDs and Kerlix will be continued on a ryann ly basis after cleansing and irrigation. I will see Ms. Wilson again in 3 weeks. The patient will continue physical therapy now with weightbearing on the left lower extremity as per Dr. Gipson. The daphne wheatsoy was previously given a prescription to continue physical therapy. Antibiotic therapy will be i nitiated based upon the results of the cultures obtained today. I have also recommended that the esau missysoy be seen by her Management Lecturer. 2. Thoracic aortic dissection status post repair at [facility] in [place]. 3. Hypertension. 4. Osteoarthritis. 5. Peripheral vascular disease.
[2018-01-11] MEDS ORDERED: Lidocaine 2% Jelly 5 ML TUBE ONE (17:51)
[2018-01-11] MEDS ORDERED: Sodium Chloride 0.9% 15 ML NEB ONE (17:51)
== END 2018-01-11 13:21 | disposition home or self-care (01) ==
LOC: WCC 13:20
PROVIDERS: ATTEND Family Medicine
DX: T81.89XD Other complications of procedures, not elsewhere classified, subsequent encounter (principal); I10 Essential (primary) hypertension; M19.90 Unspecified osteoarthritis, unspecified site; I73.9 Peripheral vascular disease, unspecified; Z98.890 Other specified postprocedural states
CPT/HCPCS: 87070; 87077; 87186; 87205; A4218

== ENCOUNTER 2018-02-01 14:30 | Outpatient (CLI) | payer MEDICARE, BC ==
[~2018-02-01 14:30] MED LIST changes: -Lidocaine 2% Jelly 5 ML TUBE ONE
--- NOTE | 2018-02-01 14:35 | PRG ---
DATE OF SERVICE: 02/01/2018 HISTORY: Ms. Belinda Wilson is a very pleasant 82-year-old accompanied by her and a careg iver who presents to the Wound Center for evaluation of a wound of the left foot subsequent to transm etatarsal amputation in 11/2016. Most recently, the patient underwent a second surgery by Dr. Prem garcia Podiatry. Again, the patient underwent resection of exposed bone within the wound bed of the left foot wound in addition to the application of PriMatrix to the wound bed of the left foot wound. The patient underwent the last surgical procedure in [facility]. Negative pressure therapy was not resumed after surgery. The patient continues to receive physical therapy now with w eightbearing on the left lower extremity. Since the patient's last visit, Ms. Wilson has been recei ving dressing changes of Xeroform gauze, ABDs and Kerlix. These dressing changes are being performed on a daily basis after cleansing and irrigation with the assistance of the patient's and a c aregiver. Ms. Wilson has no complaints today. She denies any fever or chills. PHYSICAL EXAMINATION: VITAL SIGNS: Temperature 97.6, pulse 61, respirations 18, blood pressure 133/63. EXTREMITIES: Only one wound of the left foot remains which measures approximately 1.0 x 0.7 cm. The wound is granulating. Necrotic and nonviable tissue present within the wound margins was debrided w ith an excisional full-thickness debridement with the use of a curette. Desiccated tissue at the per iphery of the wound was excised with the use of scissors. No purulent drainage is associated with th e wound. No erythema of the skin surrounding the wound is present. No maceration of the skin of the periwound is noted. No significant edema of the left foot is present on exam today. ASSESSMENT AND PLAN: 1. Wound of left foot subsequent to transmetatarsal amputation. As stated above, only one wound rem ains which measures approximately 1.0 x 0.7 cm. As stated above, the patient has undergone resection of exposed bone within the wound bed of the left foot wound and PriMatrix application both on two se parate occasions by Dr. Amaro of Podiatry. Also as stated above, negative pressure therapy was not re sumed after surgery. Dressing changes of Xeroform gauze, ABD and Kerlix will be continued on a daily basis after cleansing and irrigation. I will see Ms. Wilson again in four weeks. The patient will continue physical therapy now with weightbearing on the left lower extremity as per Dr. Amaro. The p audrey was previously given a prescription to continue physical therapy. 2. Thoracic aortic dissection status post repair at [facility] in [place]. 3. Hypertension. 4. Osteoarthritis. 5. Peripheral vascular disease.
== END 2018-02-01 14:31 | disposition home or self-care (01) ==
LOC: WCC 14:30
PROVIDERS: ATTEND Family Medicine
DX: T81.89XD Other complications of procedures, not elsewhere classified, subsequent encounter (principal); I10 Essential (primary) hypertension; M19.90 Unspecified osteoarthritis, unspecified site; I73.9 Peripheral vascular disease, unspecified; Z86.79 Personal history of other diseases of the circulatory system; Z98.890 Other specified postprocedural states
CPT/HCPCS: A4218

== ENCOUNTER 2018-03-01 13:43 | Outpatient (CLI) | payer MEDICARE, BC ==
--- NOTE | 2018-03-01 14:56 | PRG ---
DATE OF SERVICE: 03/01/2018 SUBJECTIVE: Ms. Belinda Wilson is a very pleasant 82-year-old accompanied by her and a careg iver, who presents to the Wound Center for evaluation of a wound of the left foot subsequent to trans metatarsal amputation in 11/2016. The patient underwent a second surgery by Dr. Amaro of Podiatry [facility] being seen in the Wound Center. Again, the patient underwent resection of exposed bone within the wound bed of the left foot wound in addition to the application of PriMatrix to the wound bed of the left foot wound. The patient underwent the last surgical procedure in [facility]. Negative pressure therapy was not resumed after surgery. The patient continues to receive phy sical therapy now with weightbearing on the left lower extremity. Since the patient's last visit, Ms Laisha Wilson has been receiving dressing changes of Xeroform gauze, ABDs and Kerlix every other day afte r cleansing and irrigation with the assistance of her and a caregiver. The patient denies an y fever or chills. OBJECTIVE: VITAL SIGNS: Temperature 97.6, pulse 61, respirations 19, blood pressure 135/70. EXTREMITIES: Only one wound of the left foot remains which measures approximately 0.9 x 0.8 cm. The wound is granulating. Necrotic and nonviable tissue present within the wound margins was debrided w ith an excisional full-thickness debridement with the use of a curet. Desiccated tissue and undermin ing at the periphery of the wound were eliminated with the use of scissors. No purulent drainage is associated with the wound. No erythema of the skin surrounding the wound is present. No maceration of the skin of the periwound is noted. No significant edema of the left foot is present on exam toda y. ASSESSMENT AND PLAN: 1. Wound of left foot subsequent to transmetatarsal amputation. As stated above, only 1 wound remai ns which measures approximately 0.9 x 0.8 cm. Dressing changes of Xeroform gauze and Kerlix are to b e performed every other day after cleansing and irrigation. I will see Ms. Wilson again in four wee ks. The patient will continue physical therapy now with weightbearing on the left lower extremity as per Dr. Amaro. The patient was previously given a prescription to continue physical therapy. 2. Thoracic aortic dissection status post repair at [facility] in [place]. 3. Hypertension. 4. Osteoarthritis. 5. Peripheral vascular disease.
== END 2018-03-01 13:44 | disposition home or self-care (01) ==
LOC: WCC 13:43
PROVIDERS: ATTEND Family Medicine
DX: T81.89XD Other complications of procedures, not elsewhere classified, subsequent encounter (principal); I10 Essential (primary) hypertension; M19.90 Unspecified osteoarthritis, unspecified site; I73.9 Peripheral vascular disease, unspecified; Z98.890 Other specified postprocedural states
CPT/HCPCS: 11042

== ENCOUNTER 2019-11-15 15:49 | Emergency (ER) | payer MEDICARE ==
[2019-11-15] MEDS ORDERED: Dexamethasone 4 mg/ml Vial ONE (16:44)
[2019-11-15 17:00] LABS: #Eosinphils 0.5 thou/uL (0.0-0.7); #Lymphocytes 1.3 thou/uL (1.20-3.40); #Monocytes 0.5 thou/uL (0.11-0.59); %Basophils 0.3 % (0.0-1.0); %Eosinophils 5.7 % (0.0-10.0); %Lymphocytes 13.8 % (21.0-51.0); %Monocytes 4.9 % (0.0-10.0); %Neutrophils 75.3 % (42.0-75.0); Hemoglobin 12.7 g/dL (12.0-16.0); Mean Corpuscular HGB CONC 32.8 g/dL (32.0-36.0); Mean Corpuscular Hemoglobin 30.6 pg (27.0-31.0); Mean Corpuscular Volume 93.2 fL (78.0-98.0); Mean Platelet Volume 7.1 fL (7.4-10.4); Platelet Count 172 thou/uL (130-400); Red Blood Cell (RBC) Count 4.15 mill/uL (4.20-5.40); White Blood Cell (WBC) Count 9.3 thou/uL (4.8-10.8)
[2019-11-15 17:21] LABS: ALT (SGPT) 26 U/L (8-55); AST (SGOT) 28 U/L (5-34); Albumin 3.4 g/dL (3.4-4.8); Alkaline Phosphatase 89 U/L (40-110); Anion Gap 11 mmol/L (10-20); BUN (Urea Nitrogen) 36 mg/dL (9.8-20.1); Bilirubin, Total 0.4 mg/dL (0.2-1.2); Calc. Creatinine Clearance 0 mL/min (70-130); Calcium 8.4 mg/dL (7.8-10.44); Carbon Dioxide 26 mmol/L (23-31); Chloride 101 mmol/L (98-107); Estimated GFR-MDRD 34; Globulin 2.8 g/dL (2.4-3.5); Glucose 114 mg/dL (83-110); Potassium 3.4 mmol/L (3.5-5.1); Protein, Total 6.2 g/dL (6.0-8.3); Sodium 135 mmol/L (136-145)
== END 2019-11-15 17:58 | disposition home or self-care (01) ==
LOC: ERS 15:49
DX: R21 Rash and other nonspecific skin eruption (principal); E78.5 Hyperlipidemia, unspecified; I10 Essential (primary) hypertension
CPT/HCPCS: 36415; 80053; 85025; 85652; 86140; 99283; J1100

== ENCOUNTER 2021-02-15 17:50 | Inpatient (IN) | payer MEDICARE ==
[~2021-02-15 17:50] MED LIST changes: +Iopamidol-370 76% 500 ML 1 ML ONE; -Sodium Chloride 0.9% 15 ML NEB ONE
[2021-02-15 18:21] LABS: #Eosinphils 0.2 thou/uL (0.0-0.7); #Lymphocytes 1.7 thou/uL (1.20-3.40); #Monocytes 0.8 thou/uL (0.11-0.59); #Neutrophils 10.5 thou/uL (1.40-6.50); %Basophils 0.2 % (0.0-1.0); %Eosinophils 1.2 % (0.0-10.0); %Lymphocytes 12.6 % (21.0-51.0); %Monocytes 6.1 % (0.0-10.0); Hemoglobin 11.5 g/dL (12.0-16.0); Mean Corpuscular HGB CONC 33.6 g/dL (32.0-36.0); Mean Corpuscular Hemoglobin 29.7 pg (27.0-31.0); Mean Corpuscular Volume 88.4 fL (78.0-98.0); Mean Platelet Volume 6.2 fL (7.4-10.4); Platelet Count 296 thou/uL (130-400); RBC Distribution Width 13.5 % (11.5-14.5); Red Blood Cell (RBC) Count 3.86 mill/uL (4.20-5.40); White Blood Cell (WBC) Count 13.1 thou/uL (4.8-10.8)
[2021-02-15 18:30] LABS: PTT 30.1 sec (22.9-36.1); Prothrombin Time 13.7 sec (12.0-14.7)
[2021-02-15 18:39] LABS: ALT (SGPT) 22 U/L (8-55); AST (SGOT) 32 U/L (5-34); Albumin 3.7 g/dL (3.4-4.8); Alkaline Phosphatase 130 U/L (40-110); Anion Gap 16 mmol/L (10-20); BUN (Urea Nitrogen) 21 mg/dL (9.8-20.1); Bilirubin, Total 0.8 mg/dL (0.2-1.2); Calc. Creatinine Clearance 0 mL/min (70-130); Calcium 9.9 mg/dL (7.8-10.44); Carbon Dioxide 26 mmol/L (23-31); Chloride 98 mmol/L (98-107); Globulin 4.8 g/dL (2.4-3.5); Glucose 119 mg/dL (83-110); Potassium 4.5 mmol/L (3.5-5.1); Protein, Total 8.5 g/dL (5.8-8.1); Sodium 135 mmol/L (136-145)
[2021-02-15] MEDS ORDERED: Cefepime 2 GM VIAL ONE (19:28)
[2021-02-15] MEDS ORDERED: Sodium Chloride 0.9% 100 ML ONE (19:28)
[2021-02-15] MEDS ORDERED: Vancomycin 1 GM/200 ML BAG ONE ×2 (19:29→21:21)
[2021-02-15] MEDS ORDERED: Acetaminophen 500 MG TAB ONE (19:41)
[2021-02-15 19:42] LABS: Bacteria/HPF None Seen HPF (None Seen); Bilirubin Negative (Negative); Blood, Urine 1+ (Negative); Clarity Clear (Clear); Glucose, Urine (Dipstick) Normal (Negative); Ketone, Urine Negative (Negative); Leukocyte Negative Leu/uL (Negative); Mucous/LPF Rare LPF (<2+); Nitrite Negative (Negative); Protein, Urine (Dipstick) Negative (Neg-Trace); Squamous Epithelial 0-3 HPF (0-3); Urobilinogen Normal mg/dL (Less than 2); WBC/HPF 0-3 HPF (0-3); pH, Urine 6.5 (5.0-9.0)
[2021-02-15 21:14] LABS: SARS-CoV-2 NAA Rapid Test Not Detected (NotDetected)
[2021-02-15 21:33] LABS: Lactic Acid 1.5 mmol/L (0.5-2.2)
[2021-02-15] MEDS ORDERED: hydrALAZINE 20 MG/ML VIAL SLOW IVP PRN (21:35)
[2021-02-15] MEDS ORDERED: niCARdipine 25 MG in Sodium Chloride 0.9% 250 ML 240 ML IVPB SCH (23:00)
[2021-02-16 00:22] VITALS: BMI 28.2
[2021-02-16] MEDS: Acetaminophen 325 MG TAB PO PRN ×2 (00:40→07:40)
[2021-02-16] MEDS: Ondansetron PF 4 MG/2 ML Vial IVP PRN ×3 (06:22→17:43)
[2021-02-16] MEDS: Cefepime 1 GM in Sodium Chloride 0.9% 100 ML IVPB SCH ×2 (07:41→21:47)
[2021-02-16] MEDS: Famotidine 20 MG TAB PO SCH ×2 (07:41→20:20)
[2021-02-16] MEDS: Morphine 4 MG/ML VIAL SLOW IVP PRN ×3 (08:44→18:04)
[2021-02-16] MEDS ORDERED: VANCOMYCIN 1.25 GM/250 ML BAG 1.25 GM in Premix Bag 1 BAG IVPB SCH (20:00)
[2021-02-17] MEDS: Cefepime 1 GM in Sodium Chloride 0.9% 100 ML IVPB SCH ×2 (08:48→20:33)
[2021-02-17] MEDS: Famotidine 20 MG TAB PO SCH ×2 (08:48→20:33)
[2021-02-17] MEDS: Ondansetron PF 4 MG/2 ML Vial IVP PRN (08:48)
[2021-02-17] MEDS: Acetaminophen 325 MG TAB PO PRN ×2 (10:57→20:33)
[2021-02-17 19:27] LABS: Vancomycin, Trough 16.5 ug/mL
[2021-02-17] MEDS ORDERED: Vancomycin HCl 1.25 GM in Sodium Chloride 0.9% 250 ML 250 ML IVPB SCH (20:00)
[2021-02-18 04:59] LABS: Hemoglobin A1c 5.3 % (4.0-6.0)
[2021-02-18 05:11] LABS: Cardiac Risk 3.3 (Less than 4.5)
[2021-02-18] MEDS: Famotidine 20 MG TAB PO SCH ×2 (08:30→20:17)
[2021-02-18] MEDS: Cefepime 1 GM in Sodium Chloride 0.9% 100 ML IVPB SCH (08:31)
[2021-02-18] MEDS ORDERED: Methyl Salicylate/Menthol 85 GM TUBE TOP PRN (09:25)
[2021-02-18] MEDS: Acetaminophen 325 MG TAB PO PRN ×2 (10:47→18:52)
[2021-02-18] MEDS: Methyl Salicylate/Menthol 85 GM TUBE TOP PRN (10:47)
[2021-02-18] MEDS: Doxycycline 100 MG CAP PO SCH (20:16)
[2021-02-18] MEDS ORDERED: Melatonin 3 MG TAB PO PRN (21:53)
[2021-02-19] MEDS: Doxycycline 100 MG CAP PO SCH ×2 (09:36→20:51)
[2021-02-19] MEDS: Famotidine 20 MG TAB PO SCH ×2 (09:36→20:49)
[2021-02-19] MEDS: Methyl Salicylate/Menthol 85 GM TUBE TOP PRN ×2 (13:01→15:00)
[2021-02-19] MEDS: Acetaminophen 325 MG TAB PO PRN ×2 (13:01→20:48)
[2021-02-19 19:37] LABS: ALT (SGPT) 55 U/L (8-55); AST (SGOT) 67 U/L (5-34); Albumin 3.1 g/dL (3.4-4.8); Alkaline Phosphatase 148 U/L (40-110); Bilirubin, Direct 0.2 mg/dL (0.1-0.3); Bilirubin, Total 0.3 mg/dL (0.2-1.2); Protein, Total 6.7 g/dL (5.8-8.1)
[2021-02-19] MEDS: Venlafaxine HCl XR 150 MG CAP PO SCH (20:51)
[2021-02-20 05:13] LABS: #Eosinphils 0.4 thou/uL (0.0-0.7); #Lymphocytes 1.2 thou/uL (1.20-3.40); #Monocytes 0.7 thou/uL (0.11-0.59); #Neutrophils 6.2 thou/uL (1.40-6.50); %Basophils 0.1 % (0.0-1.0); %Eosinophils 4.5 % (0.0-10.0); %Lymphocytes 14.1 % (21.0-51.0); %Neutrophils 73.3 % (42.0-75.0); Hemoglobin 9.7 g/dL (12.0-16.0); Mean Corpuscular HGB CONC 31.8 g/dL (32.0-36.0); Mean Corpuscular Hemoglobin 28.1 pg (27.0-31.0); Mean Corpuscular Volume 88.3 fL (78.0-98.0); Mean Platelet Volume 6.3 fL (7.4-10.4); Platelet Count 251 thou/uL (130-400); RBC Distribution Width 13.6 % (11.5-14.5); Red Blood Cell (RBC) Count 3.44 mill/uL (4.20-5.40); White Blood Cell (WBC) Count 8.5 thou/uL (4.8-10.8)
[2021-02-20 05:52] LABS: Anion Gap 10 mmol/L (10-20); BUN (Urea Nitrogen) 16 mg/dL (9.8-20.1); Calc. Creatinine Clearance 62 mL/min (70-130); Calcium 9.2 mg/dL (7.8-10.44); Carbon Dioxide 26 mmol/L (23-31); Chloride 105 mmol/L (98-107); Glucose 98 mg/dL (83-110); Potassium 3.2 mmol/L (3.5-5.1); Sodium 138 mmol/L (136-145)
[2021-02-20] MEDS: Doxycycline 100 MG CAP PO SCH ×2 (08:15→20:42)
[2021-02-20] MEDS: Famotidine 20 MG TAB PO SCH ×2 (08:15→20:42)
[2021-02-20] MEDS ORDERED: Potassium Chloride 20 MEQ TAB PO SCH (08:45)
[2021-02-20] MEDS: Ondansetron PF 4 MG/2 ML Vial IVP PRN (09:33)
[2021-02-20] MEDS: Acetaminophen 325 MG TAB PO PRN ×2 (11:11→18:36)
[2021-02-20] MEDS: Potassium Chloride 20 MEQ in Premix Bag 1 BAG IVPB SCH ×2 (11:12→13:57)
[2021-02-20] MEDS: Venlafaxine HCl XR 150 MG CAP PO SCH (20:43)
[2021-02-21 04:30] VITALS: TEMP 98.1
[2021-02-21 05:11] LABS: Anion Gap 11 mmol/L (10-20); BUN (Urea Nitrogen) 18 mg/dL (9.8-20.1); Calc. Creatinine Clearance 63 mL/min (70-130); Calcium 8.6 mg/dL (7.8-10.44); Carbon Dioxide 24 mmol/L (23-31); Chloride 105 mmol/L (98-107); Glucose 85 mg/dL (83-110); Potassium 3.8 mmol/L (3.5-5.1); Sodium 136 mmol/L (136-145)
[2021-02-21] MEDS: Famotidine 20 MG TAB PO SCH (08:42)
[2021-02-21] MEDS: Doxycycline 100 MG CAP PO SCH (08:42)
[2021-02-21 11:59] VITALS: BP 158/71
[2021-02-21] MEDS: Acetaminophen 325 MG TAB PO PRN (15:22)
== END 2021-02-21 15:48 | disposition home or self-care (01) | DRG 64 ==
LOC: ERS 17:50 → CCU 20:35 → 2SE 02-16 12:12
PROVIDERS: ADMIT Internal Medicine; ATTEND Internal Medicine
DX: I61.9 Nontraumatic intracerebral hemorrhage, unspecified (principal); I63.9 Cerebral infarction, unspecified; G81.94 Hemiplegia, unspecified affecting left nondominant side; L03.114 Cellulitis of left upper limb; R50.9 Fever, unspecified; I10 Essential (primary) hypertension; R47.81 Slurred speech; R29.810 Facial weakness; Z66 Do not resuscitate; Z51.5 Encounter for palliative care; Z96.652 Presence of left artificial knee joint; I73.9 Peripheral vascular disease, unspecified; Z90.710 Acquired absence of both cervix and uterus; Z89.432 Acquired absence of left foot; Z89.431 Acquired absence of right foot; Z83.3 Family history of diabetes mellitus
CPT/HCPCS: 36415; 36416; 51701; 70450; 70496; 70498; 70553; 71045; 80048; 80053; 80061; 80076; 80202; 81003; 81015; 83036; 83605; 84443; 84484; 85025; 85610; 87040; 87077; 87086; 87149; 87186; 93005; 93306; 94760; 95712; 95819; 95957; 96365; 96366; 96367; J0360; J0692; J2270; J2405; J3370; J3480; J3490; J7050; Q9967; U0002